=== PATIENT | female | born 1965 | race Caucasian/White ===

== ENCOUNTER → 2018-01-11 16:54 | Outpatient (CLI) | payer BC, SELFPAY ==
[2018-01-11 17:42] LABS: Absolute Lymphocyte Count 1.52 X10^3/ul (0.83-4.51); Absolute Neutrophil Count 3.3 X10^3/uL (2.0-7.7); Basophil# 0.04 X10^3/uL; Basophil% 0.7 % (0-1); Eosinophil# 0.29 X10^3/uL; Eosinophils% 5.2 % (0-5); Hematocrit 40.8 % (37-47); Hemoglobin 13.8 g/dl (12.0-15.0); Lymphocyte # 1.52 X10^3/ul (4.0); Lymphocyte % 27.3 % (19-41); Mean Corp Hgb Conc 33.8 g/gl (32-36); Mean Corpuscular Hgb 30.2 pg (27.0-32.0); Mean Corpuscular Volume 89.3 fL (81-99); Mean Platelet Vol. 10.8 fl (6.2-12.0); Monocyte# 0.42 X10^3/uL; Monocyte% 7.6 % (0-10); Neutrophil # 3.29 X10^3/uL (2.7-7.7); Neutrophil % 59.2 % (47-70); Platelet Count 188 K/mm3 (150-450); RBC Distribution Width CV 12.6 % (11.6-14.6); RBC Distribution Width SD 40.9 fl (35.1-43.9); Red Blood Count 4.57 M/mm3 (4.2-5.4); White Blood Count 5.6 K/mm3 (4.4-11.0)
[2018-01-11 18:16] LABS: POSITIVE COUNT NO; POSITIVE DIFFERENTIAL NO; POSITIVE MORPHOLOGY NO
[2018-01-11 18:21] LABS: ALB/GLOB Ratio 1.1 RATIO (0.9-2.4); AST(SGOT) 18 U/L (15-37); Alanine Aminotransfer ALT/SGPT 36 U/L (13-56); Alkaline Phosphatase 83 U/L (45-117); Anion Gap 9 (5-15); BUN 13 mg/dL (7-18); BUN/Creat Ratio 16.3 RATIO (10-20); Calcium,Total 9.1 mg/dL (8.5-10.1); Chloride 107 mmol/L (98-107); EST Glomerular Filtration Rate 80 mL/min (>60); Est Glom Filt Rate - Afr Amer 97 mL/min (>60); Globulin 3.6 g/dL (2.2-4.2); Glucose 87 mg/dL (74-106); Protein, Total 7.6 g/dL (6.4-8.2); Sodium Level 143 mmol/L (136-145); T4 Free Direct 0.99 ng/dL (0.76-1.46); Thyroid Stim Hormone (TSH) 1.43 uIU/mL (0.358-3.74)
== END ==
PROVIDERS: Family Provider Nurse Practitioner; PCP Nurse Practitioner; Visit Provider Nurse Practitioner
DX: M54.2 Cervicalgia (principal); R53.82 Chronic fatigue, unspecified
CPT/HCPCS: 80053; 84439; 84443; 84481; 85025

== ENCOUNTER → 2018-01-11 18:30 | Outpatient (CLI) | payer BC, SELFPAY ==
--- NOTE | 2018-01-11 18:35 | US_ITS ---
STUDY: THYROID ULTRASOUND REASON FOR EXAM: Female, 52 years old. Right neck pain. Mass. Examining physician feels right side of the neck is larger than left. TECHNIQUE: Ultrasound evaluation of the thyroid was performed with real-time and static jorge-scale imaging. COMPARISON: None. FINDINGS: RIGHT LOBE: The right lobe of the thyroid gland measures 4.4 x 1.7 x 1.3 cm. There is a homogeneous echotexture. There are multiple nodules noted. There is a solid 1.1 x 1.0 x 1.6 cm nodule in the posterior mid thyroid. There is a 0.4 x 0.4 x 0.2 cm complex nodule in the upper lobe. This is 0.7 x 0.7 x 0.4 cm complex cystic and solid nodule in the lower pole. LEFT LOBE: The left lobe of the thyroid gland measures 4.3 x 1.6 x 1.5 cm. There is a homogeneous echotexture. There are 2 nodules there is a 1.1 x 1.1 x 0.6 cm isoechoic nodule with hypoechoic rim in the anterior mid to lower thyroid. There is a 0.5 x 0.3 x 0.3 cm mixed solid and cystic nodule in the mid thyroid. ISTHMUS: The isthmus measures 0.2 cm. There is a 1.7 x 0.8 x 0.2 cm lymph node lateral to the right thyroid. There is a 1.6 x 0.6 x 0 point for centimeter lymph node adjacent to the left thyroid. Also noted is a 1.4 x 0.9 x 0.6 cm lymph node in the right neck which correlates with the area of patient's pain. US/Thyroid IMPRESSION: 1. Symmetric size of the thyroid. 2. Multiple thyroid nodules. TR 3 mildly suspicious. Follow-up in one, 3 and 5 years. 3. Multiple cervical lymph nodes. Electronically Signed: Vincenzo Florez DO at 19:08 EDT Tel [phone], Service support ,
== END ==
PROVIDERS: Family Provider Nurse Practitioner; PCP Nurse Practitioner; Visit Provider Nurse Practitioner
DX: M54.2 Cervicalgia (principal); R53.82 Chronic fatigue, unspecified
CPT/HCPCS: 76536

== ENCOUNTER → 2018-01-12 07:25 | Outpatient (CLI) | payer BC, SELFPAY ==
--- NOTE | 2018-01-12 07:45 | MRI_ITS ---
STUDY: MRI BRAIN WITH AND WITHOUT CONTRAST (ATTENTION INTERNAL AUDITORY CANALS - I.A.C.'s) REASON FOR EXAM: Female, 52 years old. RIGHT pulsatile tinnitus x 3 weeks. TECHNIQUE: Standardized multiplanar fat and water weighted pulse sequences were obtained. 7 ml of Gadavist contrast material was administered intravenously for the contrast portion of the examination. COMPARISON: None. FINDINGS: Normal bilateral temporal bones. Normal bilateral internal auditory canals. There is no demonstrated intracanalicular or cisternal vestibular schwannoma (acoustic neuroma). There is no enhancement of the bilateral VIIth or VIIIth cranial nerves. Normal bilateral cochlea, vestibules and semicircular canals. Normal size of the ventricles and extra-axial spaces for the patient's age. Normal white matter tracts of the supratentorial brain. Normal bilateral basal ganglia. Normal thalami. Normal flow voids within the major intracranial circulation suggesting patency by spin echo criteria. Normal venous enhancement. There is no enhancing intra-axial or extra-axial abnormality. There is no extra-axial fluid accumulation. Normal sella turcica, pituitary gland, infundibular stalk, optic chiasm and hypothalamus. Normal tectal plate and pineal gland. Normal midbrain, harley and medulla. Normal cerebellum. Normal basal cisterns. No demonstrated orbital abnormality, within the constraints of a routine brain study. Normal visualized paranasal sinuses. Normal calvarium and skull base. Normal visualized soft tissue structures. Normal visualized upper cervical spine. MRI/Brain W/WO Contrast IMPRESSION: Unremarkable unenhanced and enhanced MRI of the bilateral internal auditory canals (I.A.C's). Electronically Signed: Toni Morrow MD at 8:02 EDT Tel , Service support ,
--- NOTE | 2018-01-12 07:45 | MRI_ITS ---
STUDY: MRA OF THE HEAD WITHOUT CONTRAST REASON FOR EXAM: Female, 52 years old. RIGHT pulsatile tinnitus x 3 weeks. TECHNIQUE: 3-D dafa-gg-iwodpj (TOF) imaging was performed with MIPs. The study was performed unenhanced. COMPARISON: None. FINDINGS: Normal bilateral petrous carotid arteries. Normal right cavernous carotid artery with a normal supraclinoid bifurcation. Normal left cavernous carotid artery with a normal supraclinoid bifurcation. Normal right A1 segments of the anterior cerebral artery. Normal left A1 segments of the anterior cerebral artery. Normal intact anterior communicating artery (ACOM). Normal bilateral A2 segments of the anterior cerebral arteries. Normal right M1 and M2 segments of the middle cerebral arteries, with a normal M1 bifurcation. Normal left M1 and M2 segments of the middle cerebral arteries, with a normal M1 bifurcation. Normal bilateral vertebral arteries. Normal basilar artery with a normal basilar bifurcation. The visualized bilateral superior cerebellar (SCA) arteries are normal. Normal bilateral P1, P2 and visualized P3 segments of the posterior cerebral arteries. There is no demonstrated aneurysm of the little traverse of Ferrari. There is no major vessel occlusion or hemodynamically significant stenosis. There is no demonstrated abnormality of the visualized brain. MRI/MRA Head ONLY without Contrast IMPRESSION: Normal MRA of the head Electronically Signed: Toni Morrow MD at 8:02 EDT Tel , Service support ,
== END ==
PROVIDERS: Family Provider Nurse Practitioner; PCP Nurse Practitioner; Visit Provider Otolaryngology Otolaryngology/Facial Plastic Surgery
DX: H93.A1 Pulsatile tinnitus, right ear (principal)
CPT/HCPCS: 70544; 70553; A9585

== ENCOUNTER → 2018-02-09 09:10 | Outpatient (CLI) | payer BC, SELFPAY ==
--- NOTE | 2018-02-08 | ASPS_PTH ---
PATIENT: KRISTIAN MACHADO LOC: [facility] U#:[id number] AGE/SX: 59/F ROOM: RE02/09/[address]: Dr. Colt Rascon MD : 1965 BED: DIS: SPEC #: [id number] RECD: 02/09/18 12:59 STATUS: GAY KERRY #: [id number] TEDDY: 02/08/18 00:[address]: Colt Rascon DEPT: CYTOLOGY RECD BY: Michael Cardenas ENTERED: 02/09/18 13:00 SP TYPE: ASPIRATION OTHR DR: Sienna Gipson, DIRECTOR OF CASINO MARKETING-C Tissues: Thyroid gland, NOS Procedures: Pap Stain (control) Special Stain Group II Cytology Other HEADER OPERATION: Ultrasound-guided fine needle aspiration of left thyroid PRE-OP DIAGNOSIS: Multinodular goiter E04.2 TISSUE SUBMITTED: Left thyroid nodule 12 slides DIAGNOSIS CYTOLOGY Fine needle aspiration, left thyroid nodule (smears): Adequate for evaluation. Negative, consistent with benign follicular nodule. AM:telly 02/10/18 CYTOLOGY STUDY Slides are reviewed. CYTOLOGY GROSS Received are 12 smears labeled with the patient's name and designated per the requisition as left thyroid nodule. Submitted for staining. / 02/09/18 TC:5 CPT: 14579
== END ==
PROVIDERS: Family Provider Nurse Practitioner; PCP Nurse Practitioner; Visit Provider Surgery
DX: E04.2 Nontoxic multinodular goiter (principal)
CPT/HCPCS: 88161; 88313

== ENCOUNTER → 2018-04-19 22:00 | Outpatient (CLI) | payer BC, SELFPAY ==
[2018-04-19 22:10] LABS: Absolute Neutrophil Count 3.5 X10^3/uL (2.0-7.7); Basophil# 0.03 X10^3/uL; Basophil% 0.5 % (0-1); Eosinophil# 0.31 X10^3/uL; Eosinophils% 4.7 % (0-5); Hematocrit 40.8 % (37-47); Hemoglobin 14.4 g/dl (12.0-15.0); Lymphocyte % 32.2 % (19-41); Mean Corp Hgb Conc 35.3 g/gl (32-36); Mean Corpuscular Hgb 30.9 pg (27.0-32.0); Mean Corpuscular Volume 87.6 fL (81-99); Mean Platelet Vol. 10.7 fl (6.2-12.0); Monocyte# 0.59 X10^3/uL; Neutrophil # 3.49 X10^3/uL (2.7-7.7); Neutrophil % 53.4 % (47-70); Platelet Count 196 K/mm3 (150-450); RBC Distribution Width CV 12.4 % (11.6-14.6); RBC Distribution Width SD 38.8 fl (35.1-43.9); Red Blood Count 4.66 M/mm3 (4.2-5.4); White Blood Count 6.5 K/mm3 (4.4-11.0)
[2018-04-19 22:11] LABS: POSITIVE COUNT NO; POSITIVE DIFFERENTIAL NO; POSITIVE MORPHOLOGY NO
[2018-04-19 22:37] LABS: ALB/GLOB Ratio 1.2 RATIO (0.9-2.4); AST(SGOT) 18 U/L (15-37); Alanine Aminotransfer ALT/SGPT 44 U/L (13-56); Albumin, Serum 4.2 g/dL (3.2-5.0); Alkaline Phosphatase 89 U/L (45-117); Anion Gap 10 (5-15); BUN 12 mg/dL (7-18); BUN/Creat Ratio 17.8 RATIO (10-20); Calcium,Total 8.6 mg/dL (8.5-10.1); Chloride 106 mmol/L (98-107); Creatinine, Serum 0.67 mg/dL (0.55-1.02); EST Glomerular Filtration Rate 97 mL/min (>60); Est Glom Filt Rate - Afr Amer 117 mL/min (>60); Free T3 2.9 pg/mL (2.18-3.98); Globulin 3.5 g/dL (2.2-4.2); Glucose 78 mg/dL (74-106); Potassium 3.8 mmol/L (3.5-5.1); Protein, Total 7.7 g/dL (6.4-8.2); Sodium Level 142 mmol/L (136-145); T4 Free Direct 1.11 ng/dL (0.76-1.46)
[2018-04-21 08:19] LABS: Thyroid Peroxidase AB 12 IU/mL (0-34)
== END ==
PROVIDERS: Family Provider Nurse Practitioner; PCP Nurse Practitioner; Referring Provider Nurse Practitioner; Visit Provider Nurse Practitioner
DX: R55 Syncope and collapse (principal); R42 Dizziness and giddiness; R00.2 Palpitations
CPT/HCPCS: 80053; 84439; 84443; 84481; 84484; 85025; 86376

== ENCOUNTER → 2018-06-02 22:44 | Outpatient (CLI) | payer BC, SELFPAY ==
[2018-06-02 18:51] VITALS: BMI 27.3
[2018-06-02 22:52] LABS: Absolute Lymphocyte Count 1.66 X10^3/ul (0.83-4.51); Absolute Neutrophil Count 3.7 X10^3/uL (2.0-7.7); Basophil# 0.04 X10^3/uL; Basophil% 0.6 % (0-1); Eosinophil# 0.35 X10^3/uL; Eosinophils% 5.5 % (0-5); Hematocrit 30.2 % (37-47); Hemoglobin 9.6 g/dl (12.0-15.0); Lymphocyte # 1.66 X10^3/ul (4.0); Lymphocyte % 26.3 % (19-41); Mean Corp Hgb Conc 31.8 g/gl (32-36); Mean Corpuscular Hgb 30.2 pg (27.0-32.0); Mean Platelet Vol. 10.7 fl (6.2-12.0); Monocyte# 0.53 X10^3/uL; Monocyte% 8.4 % (0-10); Neutrophil # 3.71 X10^3/uL (2.7-7.7); Neutrophil % 58.9 % (47-70); POSITIVE COUNT NO; POSITIVE DIFFERENTIAL NO; POSITIVE MORPHOLOGY NO; Platelet Count 267 K/mm3 (150-450); RBC Distribution Width CV 14.7 % (11.6-14.6); Red Blood Count 3.18 M/mm3 (4.2-5.4); White Blood Count 6.3 K/mm3 (4.4-11.0)
[2018-06-02 23:28] LABS: ALB/GLOB Ratio 1.2 RATIO (0.9-2.4); AST(SGOT) 42 U/L (15-37); Alanine Aminotransfer ALT/SGPT 81 U/L (13-56); Alkaline Phosphatase 106 U/L (45-117); Anion Gap 7 (5-15); BUN 11 mg/dL (7-18); BUN/Creat Ratio 10.7 RATIO (10-20); Calcium,Total 8.5 mg/dL (8.5-10.1); Chloride 106 mmol/L (98-107); Creatinine, Serum 1.03 mg/dL (0.55-1.02); EST Glomerular Filtration Rate 59 mL/min (>60); Est Glom Filt Rate - Afr Amer 72 mL/min (>60); Globulin 3.4 g/dL (2.2-4.2); Glucose 95 mg/dL (74-106); Protein, Total 7.4 g/dL (6.4-8.2); Sodium Level 140 mmol/L (136-145)
== END ==
PROVIDERS: Family Provider Nurse Practitioner; PCP Nurse Practitioner; Referring Provider Nurse Practitioner; Visit Provider Nurse Practitioner
DX: R53.83 Other fatigue (principal); D64.9 Anemia, unspecified
CPT/HCPCS: 80053; 85025

== ENCOUNTER → 2018-07-13 22:27 | Outpatient (CLI) | payer BC, SELFPAY ==
[2018-07-13 18:47] VITALS: BMI 26.9
[2018-07-13 22:46] LABS: Absolute Lymphocyte Count 2.29 X10^3/ul (0.83-4.51); Basophil# 0.06 X10^3/uL; Basophil% 0.7 % (0-1); Eosinophil# 0.35 X10^3/uL; Eosinophils% 4.2 % (0-5); Hematocrit 43.2 % (37-47); Hemoglobin 14.5 g/dl (12.0-15.0); Lymphocyte # 2.29 X10^3/ul (4.0); Lymphocyte % 27.7 % (19-41); Mean Corp Hgb Conc 33.6 g/gl (32-36); Mean Corpuscular Hgb 30.1 pg (27.0-32.0); Mean Corpuscular Volume 89.8 fL (81-99); Mean Platelet Vol. 10.9 fl (6.2-12.0); Monocyte# 0.57 X10^3/uL; Monocyte% 6.9 % (0-10); Neutrophil # 4.99 X10^3/uL (2.7-7.7); Neutrophil % 60.3 % (47-70); Platelet Count 212 K/mm3 (150-450); RBC Distribution Width CV 12.2 % (11.6-14.6); RBC Distribution Width SD 39.8 fl (35.1-43.9); Red Blood Count 4.81 M/mm3 (4.2-5.4); White Blood Count 8.3 K/mm3 (4.4-11.0)
[2018-07-13 22:47] LABS: POSITIVE COUNT NO; POSITIVE DIFFERENTIAL NO; POSITIVE MORPHOLOGY NO
[2018-07-13 23:02] LABS: ALB/GLOB Ratio 1.1 RATIO (0.9-2.4); AST(SGOT) 44 U/L (15-37); Alanine Aminotransfer ALT/SGPT 72 U/L (13-56); Albumin, Serum 4.1 g/dL (3.2-5.0); Alkaline Phosphatase 102 U/L (45-117); Anion Gap 7 (5-15); BUN 22 mg/dL (7-18); BUN/Creat Ratio 33.5 RATIO (10-20); Chloride 105 mmol/L (98-107); Creatinine, Serum 0.66 mg/dL (0.55-1.02); EST Glomerular Filtration Rate 100 mL/min (>60); Est Glom Filt Rate - Afr Amer 121 mL/min (>60); Globulin 3.7 g/dL (2.2-4.2); Glucose 89 mg/dL (74-106); Potassium 4.2 mmol/L (3.5-5.1); Protein, Total 7.8 g/dL (6.4-8.2); Sodium Level 139 mmol/L (136-145)
== END ==
PROVIDERS: Family Provider Nurse Practitioner; PCP Nurse Practitioner; Referring Provider Nurse Practitioner; Visit Provider Nurse Practitioner
DX: D64.9 Anemia, unspecified (principal)
CPT/HCPCS: 80053; 85025

== ENCOUNTER 2020-03-06 12:39 | Observation (INO) | payer BC, SELFPAY ==
[2019-03-23 21:04] VITALS: BMI 27.3
[2020-03-06] VITALS (15 sets, daily range): BP systolic 112–165; BP diastolic 78–97; PULSE 60–97; RESP 16–18; TEMP 36.1–37.5; O2SAT 92–100; BMI 27.1; BMI 28.3
--- NOTE | 2020-03-06 09:09 | EKG12_ITS ---
Test Reason : PRE-OP Blood Pressure : / mmHG Vent. Rate : 076 BPM Atrial Rate : 076 BPM P-R Int : 138 ms QRS Dur : 078 ms QT Int : 392 ms P-R-T Axes : 067 063 051 degrees QTc Int : 441 ms Normal sinus rhythm Normal ECG No previous ECGs available Confirmed by DICK KUHN, COREY ([id number]), newspaper managing editor KAYE ECKERT ([id number]) on 03/12/2020 9:21:11 AM Referred By: Ousmane Berman Confirmed By:AL JENNINGS MD
--- NOTE | 2020-03-06 09:29 | PCM.HP.BLA ---
Problem List (1) Hypokalemia Status: Acute (2) Cholelithiasis with cholecystitis Status: Acute Qualifiers: History and Physical Date of Admission: 03/06/20 Intake Visit Reasons: gallstones Chief Complaint: Cholelithiasis Carton And Can Supply Supervisor Required: No Accompanied by: Is patient in pain?: Yes Allergies No Known Allergies Allergy (Verified 03/05/20 13:22) Medications dexamethasone 0.5 mg/5 mL oral elixir 0.5 mg PO TID 03/05/20 [History Confirmed 03/05/20] potassium chloride 20 mEq tablet,extended release 20 meq PO DAILY #10 tab 03/05/20 [Rx Confirmed 03/05/20] tamoxifen 20 mg tablet 20 mg PO DAILY 03/05/20 [History Confirmed 03/05/20] PFSH Medical History Neck pain (Acute) Fatigue (Acute) Cholelithiasis (Acute) Fibroids (Acute) Left breast mass (Acute) Multinodular goiter (Acute) benign left follicular thyroid nodule (Acute ~02/09/18) multiple complex cysts in breast (Acute) Surgical History H/O hysterectomy for benign disease (Acute) Previous section (Acute) S/P lumpectomy, left breast (Acute) Family History Other CAD (coronary artery disease) CVA (cerebral vascular accident) Diabetes Heart disease Hypertension Social History (Updated 03/05/20 @ 13:[address] Ousmane Berman MD) Smoking Status: Former smoker how long ago did patient quit smoking: June 2017 second hand exposure: No alcohol intake: current details: once a month wine or mixed drink substance use type: does not use well-balanced diet: daily or most days what type of physical activity do you participate in: walking frequency: 1-2 times per week HPI HPI HPI: KRISTIAN MACHADO, is a 54 F who presents to the office today for urgent consultation regarding suspected biliary colic chronic cholecystitis cholelithiasis. The patient is referred by Sienna Gipson CNP and a written copy of my surgical consult recommendations will return to her. 54-year-old female. Yesterday morning she developed severe right upper quadrant pain with radiation to the back. She was then seen at [facility] yesterday. Findings were abnormal with a white count 11.5 hemoglobin 14.1 hematocrit 38.8 platelet count 205,000 with 81% segs. Liver function tests were normal. Lipase normal. Patient had a potassium level 3. She did not have her potassium replaced. She was not given any oral potassium. She subsequently had a gallbladder ultrasound done today which demonstrates cholelithiasis. There is no wall thickening noted or fluid. The common bile duct is 5.5 mm. The patient received morphine and Toradol in the ER yesterday. She has taken some nonsteroidal Advil today. She denies fever chills or sweats no nausea or vomiting. No recent weight loss. No history of DVT. 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 She takes an oral rinse of dexamethasone and it is controlled. 2 years ago she was in the hospital and through that contact developed C. difficile. She recovered and has not had any symptoms. She has had a previous left breast lumpectomy for benign disease. She has not been a tobacco user. HPI HPI HPI: KRISTIAN MACHADO, is a 54 F who presents to the office today for ROS General General: No weight change, appetite, fatigue, colon cancer, breast cancer or weakness HEENT HEENT: No difficulty swallowing, eye injury, eye surgery, swollen glands or hoarseness Endo Endocrine: No thyroid disease, diabetes mellitus, thyroid cancer, Hair loss, heat intolerance or cold intolerance Skin Skin: No rash or changing moles Breast Breast: No left breast lump, right breast lump, nipple discharge, breast pain, abnormal mammogram, abnormal US or breast enlargement Musc Musculoskeletal: No back problems, arthritis, rheumatoid arthritis, gout or joint pain Cardio Cardiovascular: No murmur, pacemaker, heart disease, atrial fibrillation, high blood pressure, heart attack, heart stent, palpitations, shortness of breat with exertion or chest pain Psych Psychiatric: No depression, anxiety or hearing voices Resp Respiratory: No shortness of breath, No sleep apnea, No cough, No COPD, No asthma, No emphysema, No wheezing Gastro Gastrointestinal: Yes abdominal pain, No nausea or vomiting, No diarrhea, No constipation, No blood in stool, No acid reflux, No hemorrhoids, No ulcers, Yes gallbladder problem, No black,tarry stools Moy Hematologic: No blood thinners, No blood disorders, No bleeding, No anemia, No blood clots Neuro Neurologic: No system reviewed and no additional complaints, except as docu, No as per HPI, No abnormal walking, No abnormal hearing, No abnormal movements, No abnormal speech, No behavioral changes, No burning sensations, No confusion, No seizure-like activity, No unsteadiness, No dizziness, No localized weakness, No frequent falls, No headache(s), No lack of coordination, No loss of vision, No memory loss, No numbness, No other visual disturbances, No radiating pain, No restless legs, No sensory deficit, No fainting, No tingling, No tremor(s), No weakness, No other Exam Const General: cooperative, other (Uncomfortable) Nutritional Appearance: average body habitus Orientation: alert, awake [facility] Head: normal to inspection Eyes General: appearance normal, both eyes and all related structures Chest Breast Palpation: No nipple discharge Resp Effort & Inspection: normal respiratory effort Auscultation: clear to auscultation bilaterally Cardio Palpation: normal PMI Rate: regular rate Heart Sounds: no murmurs GI Palpation: soft Other: Gallbladder enlargement noted. Mild tenderness, otherwise soft, normal bowel sounds, mild guarding, no rebound Musc Cervical Spine: normal cervical lordosis Skin General: no rashes or lesions noted Neuro General: alert, awake Extrem General: no calf tenderness Psych Affect: normal affect Assessment & Plan Problems 1. Calculus of gallbladder with acute cholecystitis without obstruction K80.00 2. Hypokalemia E87.6 Plan I recommended the patient replacement of her potassium prior to attempting surgery. I have prescribed oral potassium 20 mEq now and at 6 PM and at 10 PM. She will be fasting after midnight. We will add her onto the surgery schedule tomorrow with a preoperative stat potassium level. I described to her a laparoscopic cholecystectomy with selective cholangiography. I discussed the technique, benefit, risk and alternatives. She has had an opportunity to ask and have questions answered. Because of her C. difficile colitis I will not initiate oral antibiotic therapy at this setting. She will get 1 dose intravenously preop procedure. Clinically I believe that she has an enlarged gallbladder. I believe however that she can be managed conservatively until her potassium can be replaced. I appreciate the opportunity of assisting with her surgical care Copy: Sienna Gipson, ALTA Berman M.D., F.A.C.S. Medications New: potassium chloride ER Take one tablet now, repeat at 6pm and bedtime 03/05/2020. Beginning 03/06/2020 take one tablet daily 20 mEq PO DAILY 10 tabs 0RF Coding Level of Care Code 30107 Diagnoses Calculus of gallbladder with acute cholecystitis without obstruction K80.00 ??Cholelithiasis location: gallbladder ??Cholecystitis acuity: acute ??Biliary obstruction: without biliary obstruction Hypokalemia E87.6 I have re-examined the patient. There are no clinical changes since date of exam. Procedure Criteria Procedure Type: Elective COVID Risk Discussion: The surgeon/proceduralist and patient have discussed in detail the risk of exposure to and/or potential harm posed by the COVID-19 virus with having a surgery/procedure at this time versus the risk of delaying the surgery/procedure. It is not possible to know either the risk of delaying the surgery or procedure or chance of getting an infection with perfect accuracy, but a joint decision was made between the patient and the surgeon/proceduralist to proceed at this time with the scheduled surgery/procedure as indicated on the consent form.
--- NOTE | 2020-03-06 09:34 | DCINST_ITS ---
Discharge Diet: Light diet - advance as tolerated - if you have questions about your diet instructions, please talk to you doctor. Discharge Activity: May Not Drive - for 1 week or while taking narcotic pain medicine. May shower in (days): 1 Lifting Restrictions: 10 pounds Call your doctor if your incision/area has: Continuous Slow Oozing, Sudden Increased Bleeding, Increased Pain/ Swelling, Increased Redness, Foul Smelling Discharge Call your doctor if you observe: Fever of 101 or Higher Suture Line Care: Avoid Pulling/Pushing, Avoid Pinching/Bending Additional Dressing/Incision Instructions:: Change or remove dressing in 4 days. Leave steri-strips in place for 1 week. Allergies/Adverse Reactions: Allergies No Known Allergies Allergy (Verified 03/05/20 14:21) Medications to take at Discharge dexamethasone 0.5 mg/5 mL oral elixir 0.5 mg PO TID 03/05/20 potassium chloride 20 mEq tablet,extended release 20 meq PO DAILY #10 tab 03/05/20 tamoxifen 20 mg tablet 20 mg PO DAILY 03/05/20 Orders to be completed after discharge: Potassium Time Frame: 03/06/20, [facility], Location: Laboratory Primary Care Physician: Sienna Gipson WATER TREATMENT OPERATOR, WATER TREATMENT OPERATOR-C [Primary Care Provider] - Test Results: Test results from this visit will be discussed in further detail at your follow- up appointment, if applicable. Please Follow Up With: Ousmane Berman MD - [phone] When: Call to make an appointment to be seen in about 10 days. Please Follow Up With: Call for appt: May be phone or virtual or on site
[2020-03-06] MEDS: Lactated Ringers 1,000 ML 100 ML IV ×3 (09:40→23:46)
[2020-03-06] MEDS: Cefazolin 2 GM in 0.9% Normal Saline 100 ML IV (11:03)
--- NOTE | 2020-03-06 11:05 | GALL_PTH ---
PATIENT: KRISTIAN MACHADO LOC: [facility] U#:[id number] AGE/SX: 54/F [place] [facility] [place]: Dr. Ousmane Berman MD : 1965 BED: 1 DIS: 03/07/2020 SPEC #: [id number] RECD: 03/06/20 13:28 STATUS: GAY KERRY #: [id number] TEDDY: 03/06/20 11:[address]: Ousmane Berman DEPT: SURGICAL PATHOLOGY RECD BY: Doris Agee ENTERED: 03/06/20 13:41 SP TYPE: EMERY STEPHENS DR: Sienna Gipson, DRAFTER TOPOGRAPHICAL-C Tissues: A - Gallbladder, NOS B - HERNIA Procedures: Surgery Specimen Level II Surgery Specimen Level III HEADER OPERATION: Laparoscopic cholecystectomy with IOC and umbilical hernia PRE-OP DIAGNOSIS: Cholelithiasis with cholecystitis TISSUE SUBMITTED: A - Gallbladder, B - Hernia sac and contents MICROSCOPIC DIAGNOSIS A. Gallbladder, cholecystectomy: Acute and chronic hemorrhagic and ulcerated cholecystitis and cholelithiasis. B. Hernia sac and contents: A piece of mature adipose tissue, consistent with hernia sac and contents. SALVADOR:telly 03/08/20 MICROSCOPIC DESCRIPTION Slides are reviewed. GROSS DESCRIPTION A - Received is one container labeled with the patient's name and designated gallbladder. The specimen consists of a gallbladder measuring 11 cm in length and up to 4 cm in diameter. The external surface is pink-degroot, smooth and glistening for the most part. Focally it is granular, hemorrhagic and contains cautery artifact. The gallbladder contains hemorrhagic bile and multiple greenish-brown multifaceted stones measuring in aggregate 7 x 7 x 3 cm and 1 to 2.5 cm in greatest dimension. The mucosa is congested and hemorrhagic. The gallbladder wall measures up to 0.3 cm in thickness. Mechanical Engineering Advisor sections from the gallbladder and the cystic duct are submitted in one cassette. B - Received in fixative is one container labeled with the patient's name and designated hernia sac and contents. The specimen consists of a piece of yellow adipose tissue measuring 2.5 x 1.5 x 0.5 cm. The specimen is bisected and submitted entirely in one cassette. / SALVADOR:telly 03/07/20 TC:2 CPT: 40309, 06636
--- NOTE | 2020-03-06 11:22 | RAD_ITS ---
STUDY: INTRAOPERATIVE CHOLANGIOGRAM. REASON FOR EXAM: Female, 54 years old. LAP SPIKE . Cholecystitis. -- 1 CINE RUN, 15.9 FLUORO SEC, 11.72mGy FLUOROSCOPY TIME (if supplied): ( 15.9 seconds ) minutes/seconds TECHNIQUE: An intraoperative cholangiogram was performed by the surgeon. A cine loop of 103 clips was submitted. COMPARISON: None. FINDINGS: The visualized intrahepatic biliary ducts are unremarkable. The common bile duct is not dilated. No intraluminal filling defect is seen. There is free flow of contrast into the duodenum. RAD/Cholangiogram/ O R,Initial IMPRESSION: Unremarkable intraoperative cholangiogram. Electronically Signed: Francisco Smith, at 13:09 EDT , Service support ,
[2020-03-06] MEDS: Bupivacaine Mpf 0.5% 30 ML VIAL (12:34)
--- NOTE | 2020-03-06 12:43 | OP.PCM_ITS ---
Problem List (1) Hypokalemia Status: Acute (2) Cholelithiasis with cholecystitis Status: Acute Qualifiers: Report of Operation Date of Procedure: 03/06/20 Pre-Operative Diagnosis: Acute cholecystitis cholelithiasis, umbilical hernia Post-Operative Diagnosis: Acute cholecystitis, cholelithiasis, umbilical hernia Surgery/Procedure Performed:: Laparoscopic cholecystectomy with cholangiography. Umbilical herniorrhaphy Description of Surgical Findings:: Timeout and informed consent was obtained. 54-year-old female was taken to the operating placement table underwent general endotracheal intubation anesthesia. The abdomen sterilely prepped and draped. 0.5% Marcaine was used as a local anesthetic. Throughout the procedure total 30 cc was used. Ancef 2 g were given intravenously. A vertical infraumbilical incision was created and a umbilical hernia encountered with preperitoneal fat that preperitoneal tissue was dissected free hemostasis was obtained electrocautery. Holding sutures of 0 Vicryl placed. Varies needle inserted. The abdomen was insufflated CO2 to a pressure of 10 mmHg pressure. 10 mm trocar inserted. 10 mm scope inserted. No concern trocar injuries. Under laparoscopic visualization 5 mm trochars were placed in the epigastric mid abdomen right upper quadrant. The gallbladder was noted be grossly tightly distended. There were adhesions of omentum. Adhesions of the omentum were bluntly and sharply dissected free. Hemostasis was obtained with hemo-lock clips and electrocautery. The gallbladder was trocar aspirated. It had white bile consistent with hydrops. The gallbladder was distracted further blunt dissection was required at the infundibular area. Tedious dissection was required with aqua dissection and blunt dissection until finally the cystic artery and cystic duct clearly identified in the critical view achieved. The cystic artery was clipped twice proximally once distally prior to transecting it. Hemo-lock clip was placed on the infundibular area the gallbladder incision made in the duct and through a 14-gauge Angiocath a cholangiogram catheter was inserted. Fluoroscopically control cholangiograms were obtained demonstrating normal ductal anatomy. A additional hemo-lock clip was placed on the cystic duct stump as the catheter was removed. The ga llbladder was then tediously dissected free from the liver bed. The gallbladder was partially intrahepatic and dissection was tedious and bloody. Dissection was achieved. Hemostasis was achieved with electrocautery. There were multiple stones within the gallbladder. There was felt to be no stone spillage. The gallbladder was immediately placed within a retrieval bag. The right upper quadrant was copiously irrigated and aspirated free. Several hemo-lock clips were placed on the edge of the liver to help obtain hemostasis. Fibular x2 pieces was placed in the liver bed to further obtain hemostasis. Hemostasis was felt to been obtained. The right upper quadrant was aspirated and irrigated free of excess fluid. The abdomen was allowed to deflate of the CO2 through the viral valve. The gallbladder was exited the umbilicus enlargement of the fascial incision was required. Multiple stones and a large caliber bladder encountered. Trochars were removed. The umbilical hernia was closed with several mrrdzv-hy-ponri sutures of 0 Nurolon. Skin edges approximated interrupted 4 Monocryl subdermal stitches. Steri-Strips Telfa OpSite dressings applied. Sponge and instrument and needle counts were reported to the surgeon to be correct. Blood loss approximately 30 cc. Specimens gallbladder and hernia contents. Drains none. Ousmane Berman M.D., F.A.C.S. Type of Anesthesia:: General Anesthesiologist: Yeison Waterman
[2020-03-06] MEDS: Ondansetron 4 MG/2 ML Vial IV (17:58)
--- NOTE | 2020-03-06 20:00 | NURSING ---
Encouraged pt to get out of bed and walk. Pt walked a full lap in the rodriguez. tolerated well.
[2020-03-06] MEDS: Acetaminophen 325 MG Tablet 650 MG PO (22:38)
[2020-03-06] MEDS: 0.9% Saline Lock 10 ML Syringe IV (23:29)
[2020-03-06 23:30] LABS: Bedside Glucose 123 mg/dL (70-110)
[2020-03-06] MEDS: Morphine 2 MG/ML Syringe IV (23:30)
[2020-03-07 02:29] VITALS: BP 141/89; PULSE 82; RESP 16; TEMP 37; O2SAT 96
--- NOTE | 2020-03-07 03:06 | NURSING ---
before midnight -pt had a frozen ice. Soon after she had 200 ml emesis. Pt stated she felt better after vomiting. States that previously she has problems with vomiting after anesthesia. 0305 pt just walked 3 laps in the rodriguez. tolerated well. Pt has c/o lower back pain from the bed. Assisted pt to the chair. Pt states she is more comfortable in the chair. SCD's applied. Pt is rating her pain as a 2-3 in her abdomen and lower back. Encouraged IS use
[2020-03-07 05:44] LABS: Absolute Lymphocyte Count 2.16 X10^3/uL (0.83-4.51); Absolute Neutrophil Count 9.6 X10^3/uL (2.0-7.7); Basophil# 0.04 X10^3/uL; Basophil% 0.3 % (0-1); Eosinophil# 0.03 X10^3/uL; Eosinophils% 0.2 % (0-5); Hematocrit 38.4 % (37-47); Hemoglobin 12.3 g/dL (12.0-15.0); Lymphocyte # 2.16 X10^3/ul (4.0); Lymphocyte % 16.8 % (19-41); Mean Corpuscular Hgb 30.1 pg (27.0-32.0); Mean Corpuscular Volume 94.1 fL (81-99); Mean Platelet Vol. 9.7 fl (6.2-12.0); Monocyte% 7.8 % (0-10); NRBC Flagged by Analyzer 0 % (0-5); Neutrophil # 9.58 X10^3/uL (2.7-7.7); Neutrophil % 74.6 % (47-70); Platelet Count 194 K/mm3 (150-450); RBC Distribution Width CV 12.2 % (11.6-14.6); Red Blood Count 4.08 M/mm3 (4.2-5.4); White Blood Count 12.9 K/mm3 (4.4-11.0)
[2020-03-07 05:57] LABS: Anion Gap 5 (5-15); BUN 6 mg/dL (7-18); BUN/Creat Ratio 10.7 RATIO (10-20); Calcium,Total 7.9 mg/dL (8.5-10.1); Chloride 107 mmol/L (98-107); Creatinine, Serum 0.56 mg/dL (0.55-1.02); EST Glomerular Filtration Rate 119 mL/min (>60); Est Glom Filt Rate - Afr Amer 144 mL/min (>60); Estimated Creatinine Clearance 100.94 ml/min; Glucose 116 mg/dL (74-106); Potassium 3.8 mmol/L (3.5-5.1); Sodium Level 138 mmol/L (136-145)
--- NOTE | 2020-03-07 06:02 | PN.SURG_ITS ---
Subjective: Patient is more comfortable currently. She had some nausea overnight but she thinks that it was related to the IV pain medicine. She has not had any flatus. She has been able to ambulate and she feels better with that. She has been able to urinate. - Physical Exam Vitals/I&O's: Vital Signs Temp Pulse Resp BP Pulse Ox 98.6 F 82 16 141/89 H 96 03/07/20 02:29 03/07/20 02:29 03/07/20 02:29 03/07/20 02:29 03/07/20 02:29 Oxygen Flow Rate (L/min) 2 Oxygen Delivery Method Room Air Weight: 170 lb 6.677 oz Body Mass Index (BMI) 28.3 Intake and Output for Last 24 Hours 03/05/20 03/06/20 03/07/20 23:59 23:59 23:59 Intake Total 2120.00 / 2120.00 Output Total 1750 / 1750 Balance 370.00 / 370.00 Lungs: Clear to auscultation Abdomen: Soft, Non Tender, Hypoactive Bowel Sounds Laboratory Results 03/06/20 09:20: Potassium 4.0 03/06/20 23:22: POC Glucose 123 H 03/07/20 05:36: WBC 12.9 H, RBC 4.08 L, Hgb 12.3, Hct 38.4, MCV 94.1, MCH 30.1, MCHC 32.0, RDW Std Deviation 42.0, RDW Coeff of Ness 12.2, Plt Count 194, MPV 9.7, Immature Gran % (Auto) 0.300, Neut % (Auto) 74.6 H, Lymph % (Auto) 16.8 L, [place] % (Auto) 7.8, Eos % (Auto) 0.2, Baso % (Auto) 0.3, Absolute Neuts (auto) 9.6 H, Absolute Lymphs (auto) 2.16, Nucleated RBC % 0 03/07/20 05:36: Sodium 138, Potassium 3.8, Chloride 107, Carbon Dioxide 26.0, Anion Gap 5, BUN 6 L, Creatinine 0.56, Estim Creat Clear Calc 100.94, Est GFR (MDRD) Af Amer 144, Est GFR (MDRD) Non-Af 119, BUN/Creatinine Ratio 10.7, Glucose 116 H, Calcium 7.9 L Current Medications Acetaminophen (Tylenol) 650 mg PO Q6H PRN PRN PRN Reason: Pain Score 1-10/10 Last Admin: 03/06/20 22:38 Dose: 650 mg Documented by: Hydrocodone Bitart/Acetaminophen ([place] 5mg-325mg) 1 - 2 tablet PO Q4H PRN PRN PRN Reason: Pain Score 1-10/10 Lactated Ringer's () 1,000 mls @ 100 mls/hr IV .Q10H [facility] [place] Last Admin: 03/06/20 23:46 Dose: 100 mls/hr Documented by: Morphine Sulfate () 2 - 4 mg IV Q1H PRN PRN PRN Reason: Pain Score 1-10/10 Last Admin: 03/06/20 23:30 Dose: 2 mg Documented by: Morphine Sulfate () 2 - 4 mg IV Q1H PRN PRN PRN Reason: Pain Score 1-10/10 Ondansetron HCl (Zofran) 4 mg IV Q8H PRN PRN PRN Reason: NAUSEA Last Admin: 03/06/20 17:58 Dose: 4 mg Documented by: Potassium Chloride (K-Dur) 20 meq PO DAILYCM [facility] [place] Last Admin: 03/06/20 20:08 Dose: 20 meq Documented by: Sodium Chloride () 10 - 40 ml IV UD PRN PRN Reason: SALINE FLUSH Last Admin: 03/06/20 23:29 Dose: 10 ml Documented by: Medical Necessity - Tobacco Use Smoking Status: Former smoker Tobacco Use: Non-smoker Assessment/Plan All Active Problems (Last Reviewed 03/05/20 @ 13:20 by Kathi Kan) Hypokalemia (Acute) Cholelithiasis with cholecystitis (Acute) Abnormal mammogram of left breast (Acute) Left breast mass (Acute) Post-nasal drip (Acute) Maxillary sinusitis (Acute) C. difficile colitis (Acute) Lower abdominal pain (Acute) Anemia (Acute) Palpitations (Acute) Syncopal episodes (Acute) Dizziness (Acute) Neck pain (Acute) Fatigue (Acute) Clinically she appears stable. We will rate laboratories. I will advance her to a full liquid diet. I anticipate discharge later this morning.
--- NOTE | 2020-03-07 06:58 | NURSING ---
pt walked a full lap in the [place]driguez -tolerated well.
[2020-03-07 07:40] VITALS: BP 160/98; PULSE 74; RESP 16; TEMP 36.9; O2SAT 99
[2020-03-07] MEDS: Acetaminophen 325 MG Tablet 650 MG PO (07:53)
[2020-03-07 13:25] VITALS: BP 144/80; PULSE 85; RESP 16; TEMP 36.9; O2SAT 96
== END 2020-03-07 14:00 | disposition home or self-care (01) ==
LOC: MS3 14:11 → SDC 14:21 → MS3 14:22
PROVIDERS: Admitting Provider Surgery; PCP Nurse Practitioner; Referring Provider Surgery; Visit Provider Surgery
PROC: (CPT 47610; principal; 2020-03-06 10:45)
DX: K80.12 Calculus of gallbladder with acute and chronic cholecystitis without obstruction (principal); K42.9 Umbilical hernia without obstruction or gangrene; E87.6 Hypokalemia; Z79.899 Other long term (current) drug therapy; Z87.891 Personal history of nicotine dependence; D64.9 Anemia, unspecified
CPT/HCPCS: 00790; 47563; 49585; 36415; 74300; 76000; 80048; 82962; 84132; 85025; 88302; 88304; 93005; 96361; 96374; 96375; 99218; 99251; J7120; A4216; G0378; G0379; G0463; J2405

== ENCOUNTER → 2020-12-19 22:31 | Outpatient (CLI) | payer BC, SELFPAY ==
[2020-12-19 19:30] VITALS: BMI 27.3
[2020-12-19 22:42] LABS: Absolute Neutrophil Count 4.4 X10^3/uL (2.0-7.7); Basophil# 0.06 X10^3/uL; Basophil% 0.8 % (0-1); Eosinophil# 0.23 X10^3/uL; Hematocrit 39.7 % (37-47); Hemoglobin 13.6 g/dL (12.0-15.0); Lymphocyte % 31.6 % (19-41); Mean Corp Hgb Conc 34.3 g/dL (32-36); Mean Corpuscular Hgb 30.5 pg (27.0-32.0); Mean Platelet Vol. 10.4 fl (6.2-12.0); Monocyte# 0.48 X10^3/uL; Monocyte% 6.3 % (0-10); NRBC Flagged by Analyzer 0 % (0-5); Neutrophil # 4.41 X10^3/uL (2.7-7.7); Neutrophil % 58.2 % (47-70); Platelet Count 238 K/mm3 (150-450); RBC Distribution Width CV 12.1 % (11.6-14.6); RBC Distribution Width SD 39.6 fl (35.1-43.9); Red Blood Count 4.46 M/mm3 (4.2-5.4); White Blood Count 7.6 K/mm3 (4.4-11.0)
[2020-12-19 22:58] LABS: Insulin 17.8 mU/L (2.6-37.6)
[2020-12-19 23:01] LABS: AST(SGOT) 15 U/L (15-37); Alanine Aminotransfer ALT/SGPT 31 U/L (13-56); Albumin, Serum 3.7 g/dL (3.2-5.0); Alkaline Phosphatase 56 U/L (45-117); Anion Gap 9 (5-15); BUN 12 mg/dL (7-18); BUN/Creat Ratio 15.3 RATIO (10-20); Calcium,Total 8.6 mg/dL (8.5-10.1); Chloride 107 mmol/L (98-107); Cholesterol 196 mg/dL (200); Creatinine, Serum 0.78 mg/dL (0.55-1.02); EST Glomerular Filtration Rate 80 mL/min (>60); Est Glom Filt Rate - Afr Amer 97 mL/min (>60); Globulin 3.7 g/dL (2.2-4.2); Glucose 118 mg/dL (74-106); High Density Lipoprotein 41 mg/dL; Potassium 3.7 mmol/L (3.5-5.1); Protein, Total 7.4 g/dL (6.4-8.2); Sodium Level 139 mmol/L (136-145); Triglycerides 230 mg/dL; Very Low Density Lipoprotein 46 mg/dL (5-40)
[2020-12-19 23:10] LABS: PTHIN 46.8 pg/mL (18.4-80.1)
[2020-12-24 17:02] LABS: Vitamin D 1,25-Dihydroxy 69.2 pg/mL (19.9-79.3)
== END ==
PROVIDERS: PCP Nurse Practitioner; Referring Provider Nurse Practitioner; Visit Provider Nurse Practitioner
DX: D64.9 Anemia, unspecified (principal); E87.6 Hypokalemia; R00.2 Palpitations; E55.9 Vitamin D deficiency, unspecified; R63.5 Abnormal weight gain
CPT/HCPCS: 80053; 80061; 82652; 83525; 83970; 84443; 85025

== ENCOUNTER 2023-04-03 10:39 | Emergency (ER) | payer OTHER, SELFPAY ==
[2023-04-03 10:40] VITALS: BP 155/100; PULSE 114; RESP 20; TEMP 36.6; O2SAT 97; BMI 26.7
--- NOTE | 2023-04-03 11:06 | EDS_ITS ---
HPI History of Present Illness Chief Complaint: Dizziness Informant: patient, spouse/S.O. and EMS Narrative Narrative: 57-year-old female presenting to the emergency room with lightheadedness. Patient states that a couple weeks ago she had a root canal in the right upper side. She recovered from that and this previous Wednesday (3 days ago) she had vomiting and diarrhea which was short-lived and resolved. She was feeling well until this morning. When she woke she noted discomfort on the left upper teeth very similar to when she had the infection on the right upper teeth. She states that her went to take the car to the shop and called her to come pick him up. She states that she needed to have a bowel movement was on the commode when she suddenly began to feel lightheaded. No shortness of breath nausea or sweating. She states that she was able to drive but began to feel that way still. She has a history of breast cancer current on raloxifene. She notes chronic swelling of the right lower extremity due to ankle fracture. She is not a diabetic. No known lung conditions. [facility] Medical History benign left follicular thyroid nodule (~02/09/18) Cholelithiasis Cholelithiasis with cholecystitis Fatigue Fibroids Hypokalemia Left breast mass Multinodular goiter multiple complex cysts in breast Neck pain Osteopenia Pemphigus Trimalleolar fracture of ankle, open Home Medications dexamethasone sodium phosphate 4 mg/mL injection solution 6 mg PO DAILY 05/26/22 [History Last Taken Unknown] raloxifene 60 mg tablet 60 mg PO DAILY 08/05/22 [History Last Taken Unknown] potassium chloride 20 mEq tablet,extended release 40 meq (2 x 20 mEq) PO DAILY # 10 tabs 04/03/23 [Rx Last Taken Unknown] Allergy/AdvReac Type Severity Reaction Status Date / Time No Known Allergies Allergy Verified 04/03/23 10:39 Family History Other CAD (coronary artery disease) CVA (cerebral vascular accident) Diabetes Heart disease Hypertension Surgical History H/O hysterectomy for benign disease History of arthroscopy of shoulder Previous section S/P lumpectomy, left breast Status post ORIF of fracture of ankle Trimalleolar fracture of ankle, closed Social History Smoking Status: Former smoker how long ago did patient quit smoking: June 2017 second hand exposure: No alcohol intake: current details: once a month wine or mixed drink substance use type: does not use well-balanced diet: daily or most days what type of physical activity do you participate in: walking frequency: 1-2 times per week ROS ROS ED ROS Narrative Lightheadedness Constitutional Constitutional ED: Denies chills or weight loss Eyes Eyes: Denies change in vision or diplopia ENT ENT ED: Reports other Details: Tooth pain ; Denies ear pain, rhinorrhea or sore throat Cardiovascular Cardiovascular: Denies chest pain, orthopnea, palpitations or racing heartbeat Respiratory/Chest Respiratory/Chest: Denies cough, dyspnea or orthopnea Gastrointestinal Gastrointestinal: Reports diarrhea, nausea and vomiting; Denies abdominal pain Genitourinary Genitourinary ED: Denies dysuria, hematuria or urinary frequency Musculoskeletal Musculoskeletal: Denies arthralgias or myalgias Integumentary Denies abscess or rash Neurologic Neurologic: Denies headache(s) or weakness Psychiatric Psychiatric: Denies anxiety, depression, suicidal ideation or suicidal thoughts Endocrine Endocrinology: Denies polydipsia, polyphagia or polyuria Allergic/Immunologic Allergic/Immunologic ED: Denies mouth swelling, tongue swelling or urticaria EXAM Physical Exam Const Vital Signs: 04/03/23 10:40 04/03/23 11:14 04/03/23 11:39 Temperature 97.8 F Temperature Source Temporal Pulse Rate 114 H 101 H Respiratory Rate 20 H 13 Respiratory Pattern Normal Blood Pressure 155/100 H 139/89 H Blood Pressure Mean 118 105 Pulse Ox 97 97 Oxygen Delivery Method Room Air Room Air Positive well nourished and well developed General Appearance ED: well developed HEENT Reports normocephalic, head/scalp atraumatic and moist mucous membranes Eyes PERRL and EOMs intact bilaterally Neck no lymphadenopathy, supple and no JVD Resp normal respiratory effort and clear to auscultation bilaterally Cardio regular rate, regular rhythm and no murmurs Rate: tachycardic GI normal to inspection, nondistended, normoactive bowel sounds and non-tender Palpation: soft Back/Spine no CVA tenderness and normal ROM Extremity normal to inspection General Extremety ED: Yes edema General Extremity: edema right lower extremity mild Neuro oriented x3 and CN's II-XII intact bilaterally Sensorium / Orientation: alert Motor Exam: strength 5/5 throughout Psych mental status grossly normal Mood & Affect: Negative for depressed or tearful Skin no rashes or lesions noted and no wounds MDM MDM MDM Narrative Medical decision making narrative: Patient is EKG appears normal. White count hemoglobin normal. Platelet count 164. D-dimer is normal. Troponin is 9. Glucose of 133. Potassium returned significantly low at 2.7 and her magnesium is 2.0. Patient received oral and IV potassium. At this point I think the patient can have her potassium replaced at home. Cardiac evaluation seems to be stable at this point. Patient will follow-up with her primary care doctor next week for repeat of potassium level History & Record Review Discussion w/independent historian: Patient and Significant other Lab Data Attestation: I reviewed the patient's lab results. Labs: Laboratory Results - last 24 hr 04/03/23 11:02 WBC 5.6 RBC 4.55 Hgb 14.1 Hct 40.5 MCV 89.0 MCH 31.0 MCHC 34.8 RDW Std Deviation 39.8 RDW Coeff of Ness 12.2 Plt Count 164 MPV 9.8 Immature Gran % (Auto) 0.500 Neut % (Auto) 61.3 Lymph % (Auto) 24.0 [place] % (Auto) 9.4 Eos % (Auto) 4.1 Baso % (Auto) 0.7 Absolute Neuts (auto) 3.5 Absolute Lymphs (auto) 1.35 Nucleated RBC % 0 D-Dimer Quant (PE/DVT) 0.37 Sodium 138 Potassium 2.7 L* Chloride 109 H Carbon Dioxide 23.0 Anion Gap 6 BUN 12 Creatinine 0.70 Estim Creat Clear Calc 77.87 Est GFR (MDRD) Af Amer 110 Est GFR (MDRD) Non-Af 91 BUN/Creatinine Ratio 17.1 Glucose 133 H Calcium 8.7 Magnesium 2.0 Troponin I High Sens 9 Radiography Diagnostic Testing: Clinical Impression(s) from Imaging Studies Chest X-Ray 04/03/23 11:30 IMPRESSION: Normal x-ray examination of the chest. Electronically Signed: Zechariah Waller MD at 11:58 EDT , EKG Initial EKG: Attestation: I personally reviewed and interpreted this EKG as follows: Comments: Sinus tachycardic with a ventricular rate of 116 bpm. No definitive features of ACS noted Discharge Plan Triage Chief Complaint: Dizziness ED Provider: Colt Denis Dx/Rx/DC Orders Clinical Impression: Episodic lightheadedness, Acute hypokalemia Instructions: ED Hypokalemia Prescriptions: New potassium chloride 20 mEq tablet extended release 40 meq PO DAILY Qty: 10 0RF No Action dexamethasone sodium phosphate 4 mg/mL solution 6 mg PO DAILY raloxifene 60 mg tablet 60 mg PO DAILY Primary Care Provider: Sienna Gipson NP Referrals: Sienna Gipson NP, [facility] [Primary Care Provider] - 5-7 Days Disposition Disposition: Home, Self Care
--- NOTE | 2023-04-03 11:30 | RAD_ITS ---
STUDY: X-RAY CHEST REASON FOR EXAM: Female, 57 years old. lightheadedness TECHNIQUE: Single AP portable view of the chest. COMPARISON: None. FINDINGS: EKG leads overlie the chest The lungs are clear and expanded. There is no demonstrated pleural abnormality. Normal size heart. Normal mediastinum and shaw. Normal visualized pulmonary arteries. Normal visualized aortic arch and descending thoracic aorta. There are diffuse degenerative changes of the visualized thoracic spine. Normal visualized ribs, clavicles, and shoulders. There is no demonstrated abnormality of the visualized soft tissue structures of the upper abdomen. RAD/Chest 1 View (Portable) IMPRESSION: Normal x-ray examination of the chest. Electronically Signed: Zechariah Waller MD at 11:58 EDT ,
[2023-04-03 11:31] LABS: Absolute Lymphocyte Count 1.35 X10^3/uL (0.83-4.51); Absolute Neutrophil Count 3.5 X10^3/uL (2.0-7.7); Basophil# 0.04 X10^3/uL; Basophil% 0.7 % (0-1); Eosinophil# 0.23 X10^3/uL; Eosinophils% 4.1 % (0-5); Hematocrit 40.5 % (37-47); Hemoglobin 14.1 g/dL (12.0-15.0); Lymphocyte # 1.35 X10^3/ul (0.83-4.51); Mean Corp Hgb Conc 34.8 g/dL (32-36); Mean Platelet Vol. 9.8 fl (6.2-12.0); Monocyte# 0.53 X10^3/uL; Monocyte% 9.4 % (0-10); NRBC Flagged by Analyzer 0 % (0-5); Neutrophil # 3.45 X10^3/uL (2.7-7.7); Neutrophil % 61.3 % (47-70); Platelet Count 164 K/mm3 (150-450); RBC Distribution Width CV 12.2 % (11.6-14.6); RBC Distribution Width SD 39.8 fl (35.1-43.9); Red Blood Count 4.55 M/mm3 (4.2-5.4); White Blood Count 5.6 K/mm3 (4.4-11.0)
[2023-04-03 11:39] VITALS: BP 139/89; PULSE 101; RESP 13; O2SAT 97
[2023-04-03 11:52] LABS: Anion Gap 6 (5-15); BUN 12 mg/dL (7-18); BUN/Creat Ratio 17.1 RATIO (10-20); Calcium,Total 8.7 mg/dL (8.5-10.1); Chloride 109 mmol/L (98-107); D-Dimer Quantitative (DVT/PE) 0.37 FEU/ug/m (0.27-0.49); EST Glomerular Filtration Rate 91 mL/min (>60); Est Glom Filt Rate - Afr Amer 110 mL/min (>60); Estimated Creatinine Clearance 77.87 ml/min; Glucose 133 mg/dL (74-106); Potassium 2.7 mmol/L (3.5-5.1); Sodium Level 138 mmol/L (136-145); Troponin-I HS 9 pg/mL (3.0-54.0)
[2023-04-03 12:00] VITALS: BP 139/89; PULSE 101; RESP 13; O2SAT 100
[2023-04-03] MEDS: Potassium Chloride Oral Soln 20 MEQ/15 ML UDC 40 MEQ PO (12:30)
[2023-04-03] MEDS: Potassium Chloride 10mEq/100mL 10 MEQ/100 ML IV.SOLN. 100 MEQ IV BOLUS (12:30)
[2023-04-03 13:00] VITALS: PULSE 82; RESP 22; O2SAT 100
== END 2023-04-03 13:38 | disposition home or self-care (01) ==
PROVIDERS: Emergency Provider Emergency Medicine; PCP Nurse Practitioner; Visit Provider Emergency Medicine
DX: R42 Dizziness and giddiness (principal); E87.6 Hypokalemia; Z87.891 Personal history of nicotine dependence; Z85.3 Personal history of malignant neoplasm of breast; Z90.710 Acquired absence of both cervix and uterus
CPT/HCPCS: 71045; 80048; 83735; 84484; 85025; 85379; 93005; 96365; 99285; J7030; A4216

== ENCOUNTER → 2023-04-09 | Outpatient (CLI) | payer OTHER, SELFPAY ==
[2023-04-09 21:04] LABS: AST(SGOT) 10 U/L (15-37); Alanine Aminotransfer ALT/SGPT 38 U/L (13-56); Albumin, Serum 3.6 g/dL (3.2-5.0); Alkaline Phosphatase 76 U/L (45-117); Anion Gap 8 (5-15); BUN 24 mg/dL (7-18); BUN/Creat Ratio 36.5 RATIO (10-20); Calcium,Total 8.7 mg/dL (8.5-10.1); Chloride 104 mmol/L (98-107); Creatinine, Serum 0.66 mg/dL (0.55-1.02); EST Glomerular Filtration Rate 98 mL/min (>60); Est Glom Filt Rate - Afr Amer 118 mL/min (>60); Globulin 3.6 g/dL (2.2-4.2); Glucose 109 mg/dL (74-106); Potassium 4.1 mmol/L (3.5-5.1); Protein, Total 7.2 g/dL (6.4-8.2); Sodium Level 137 mmol/L (136-145)
== END | disposition home or self-care (01) ==
PROVIDERS: PCP Nurse Practitioner; Referring Provider Nurse Practitioner; Visit Provider Nurse Practitioner
DX: E87.6 Hypokalemia (principal)
CPT/HCPCS: 80053

== ENCOUNTER → 2024-03-09 | Outpatient (CLI) | payer OTHER, SELFPAY ==
[2024-03-09 22:12] LABS: Absolute Lymphocyte Count 2.51 X10^3/uL (0.83-4.51); Basophil# 0.08 X10^3/uL; Basophil% 0.9 % (0-1); Eosinophil# 0.34 X10^3/uL; Hematocrit 41.8 % (37-47); Hemoglobin 14.3 g/dL (12.0-15.0); Lymphocyte # 2.51 X10^3/ul (0.83-4.51); Lymphocyte % 29.2 % (19-41); Mean Corp Hgb Conc 34.2 g/dL (32-36); Mean Corpuscular Hgb 30.2 pg (27.0-32.0); Mean Corpuscular Volume 88.2 fL (81-99); Mean Platelet Vol. 10.4 fl (6.2-12.0); Monocyte# 0.65 X10^3/uL; Monocyte% 7.6 % (0-10); NRBC Flagged by Analyzer 0 % (0-5); Neutrophil % 58.1 % (47-70); Platelet Count 229 K/mm3 (150-450); RBC Distribution Width CV 12.2 % (11.6-14.6); RBC Distribution Width SD 39.3 fl (35.1-43.9); Red Blood Count 4.74 M/mm3 (4.2-5.4); White Blood Count 8.6 K/mm3 (4.4-11.0)
[2024-03-09 22:28] LABS: ALB/GLOB Ratio 1.1 RATIO (0.9-2.4); AST(SGOT) 12 U/L (15-37); Alanine Aminotransfer ALT/SGPT 23 U/L (13-56); Albumin, Serum 3.9 g/dL (3.2-5.0); Alkaline Phosphatase 65 U/L (45-117); Anion Gap 7 (5-15); BUN 17 mg/dL (7-18); BUN/Creat Ratio 29.7 RATIO (10-20); Calcium,Total 9.3 mg/dL (8.5-10.1); Chloride 106 mmol/L (98-107); Cholesterol 213 mg/dL (200); Creatinine, Serum 0.57 mg/dL (0.55-1.02); EST Glomerular Filtration Rate 114 mL/min (>60); Est Glom Filt Rate - Afr Amer 138 mL/min (>60); Globulin 3.6 g/dL (2.2-4.2); Glucose 94 mg/dL (74-106); High Density Lipoprotein 46 mg/dL; Potassium 3.6 mmol/L (3.5-5.1); Protein, Total 7.5 g/dL (6.4-8.2); Sodium Level 136 mmol/L (136-145); Triglycerides 257 mg/dL; Troponin-I HS 4 pg/mL (3.0-54.0); Very Low Density Lipoprotein 51 mg/dL (5-40)
== END | disposition home or self-care (01) ==
PROVIDERS: PCP Nurse Practitioner; Referring Provider Nurse Practitioner; Visit Provider Nurse Practitioner
DX: I10 Essential (primary) hypertension (principal); K21.9 Gastro-esophageal reflux disease without esophagitis; R07.9 Chest pain, unspecified; I25.119 Atherosclerotic heart disease of native coronary artery with unspecified angina pectoris
CPT/HCPCS: 80053; 80061; 84443; 84484; 85025; 86141

== ENCOUNTER 2024-07-25 10:21 | Emergency (ER) | payer OTHER, SELFPAY ==
[2024-07-25 10:22] VITALS: BP 156/109; PULSE 150; RESP 20; TEMP 37.3; O2SAT 100; BMI 26.3
[2024-07-25 10:24] VITALS: BP 156/109; PULSE 150; RESP 20; TEMP 37.3; O2SAT 100
[2024-07-25 11:04] VITALS: BP 130/97; PULSE 117; RESP 17; O2SAT 100
[2024-07-25 11:21] LABS: Absolute Lymphocyte Count 1.54 X10^3/uL (0.83-4.51); Absolute Neutrophil Count 1.8 X10^3/uL (2.0-7.7); Basophil# 0.02 X10^3/uL; Basophil% 0.5 % (0-1); Eosinophil# 0.05 X10^3/uL; Eosinophils% 1.3 % (0-5); Hematocrit 42.1 % (37-47); Hemoglobin 14.6 g/dL (12.0-15.0); Lymphocyte # 1.54 X10^3/ul (0.83-4.51); Mean Corp Hgb Conc 34.7 g/dL (32-36); Mean Corpuscular Hgb 30.2 pg (27.0-32.0); Mean Platelet Vol. 9.8 fl (6.2-12.0); Monocyte# 0.37 X10^3/uL; Monocyte% 9.8 % (0-10); NRBC Flagged by Analyzer 0 % (0-5); Neutrophil # 1.75 X10^3/uL (2.7-7.7); Neutrophil % 46.6 % (47-70); Platelet Count 147 K/mm3 (150-450); RBC Distribution Width SD 41.1 fl (35.1-43.9); Red Blood Count 4.84 M/mm3 (4.2-5.4); White Blood Count 3.8 K/mm3 (4.4-11.0)
[2024-07-25 11:24] VITALS: BP 113/85; PULSE 88; RESP 12; TEMP 37.2; O2SAT 100
[2024-07-25 11:25] LABS: International Normalized Ratio 0.9; Prothrombin Time (Protime)PT. 11.9 SECONDS (11.7-14.9)
[2024-07-25 11:30] LABS: Partial Thromboplast Time 23.5 Seconds (24.1-36.2)
[2024-07-25 11:32] LABS: AST(SGOT) 21 U/L (15-37); Alanine Aminotransfer ALT/SGPT 37 U/L (13-56); Albumin, Serum 3.9 g/dL (3.2-5.0); Alkaline Phosphatase 78 U/L (45-117); Anion Gap 10 (5-15); BUN 10 mg/dL (7-18); BUN/Creat Ratio 10.6 RATIO (10-20); Calcium,Total 9.6 mg/dL (8.5-10.1); Chloride 104 mmol/L (98-107); Creatinine, Serum 0.94 mg/dL (0.55-1.02); EST Glomerular Filtration Rate 64 mL/min (>60); Est Glom Filt Rate - Afr Amer 78 mL/min (>60); Estimated Creatinine Clearance 63.22 ml/min; Globulin 3.9 g/dL (2.2-4.2); Glucose 124 mg/dL (74-106); Potassium 3.5 mmol/L (3.5-5.1); Protein, Total 7.8 g/dL (6.4-8.2); Sodium Level 135 mmol/L (136-145); Troponin-I HS < 3 pg/mL (3.0-54.0)
[2024-07-25] MEDS: 0.9% Normal Saline (1000mL) 1,000 ML 999 ML IV ×3 (11:36→14:19)
[2024-07-25 11:43] LABS: Bacteria 0 SEEN /hpf (None Seen); Mucous, Urine 0 SEEN /hpf (<or=2+); White Blood Cells 0 SEEN /hpf (0-5)
--- NOTE | 2024-07-25 11:43 | ED.RN ---
Critical Lactic Acid of 2.7. Dr. Sadler notified
[2024-07-25 11:44] LABS: Lactic Acid 2.7 mmol/L (0.4-1.9)
[2024-07-25 11:47] LABS: Color, Urine Straw (Yellow); Glucose, Dipstick Normal (Normal); Ketone-Dipstick 15 mg/dl (Negative); Leukocyte Esterase-Dipstick Negative /ul (Negative); Nitrite-Dipstick Negative (Negative); Occult Blood-Urine Negative /ul (Negative); Protein-Dipstick Negative (Negative); Urine Bilirubin Dipstick Negative (Negative); Urine Clarity Clear (Clear); Urine Urobilinogen Normal (Normal)
--- NOTE | 2024-07-25 11:50 | RAD_ITS ---
PROCEDURE: CHEST PA AND LATERAL REASON FOR EXAM: Two-month history of sinus drainage. TECHNIQUE: Frontal and lateral views of the chest. COMPARISON: Comparison is made with prior study dated April 03, 2023. FINDINGS: EKG electrodes are seen. The heart size is normal. The mediastinal contour is unremarkable. Hyperinflation. There is blunting of the costophrenic angles bilaterally posteriorly. The bones are unremarkable. RAD/Chest PA and Lateral IMPRESSION: Hyperinflation. No infiltrate is seen. Blunting of the costophrenic angles posteriorly. This may be chronic. Reading Location: [facility]
[2024-07-25 11:52] LABS: Red Blood Cells-Urine 0 SEEN /hpf (0-5); Squamous Epithelial Cells - UA 0-5 SEEN /hpf (5-10)
--- NOTE | 2024-07-25 12:25 | CT_ITS ---
PROCEDURE: CTA CHEST W/WO CONTRAST REASON FOR EXAM: Generalized illness. TECHNIQUE: CTA imaging of the chest with intravenous contrast. 3D reconstructions. CONTRAST: 91 mL of Isovue-300 was injected intravenously. COMPARISON: None. FINDINGS: Hardware: None. Lymph nodes: No mediastinal hilar or axillary lymphadenopathy. Heart: Normal heart size. No pericardial effusion. RV/LV Diameter Ratio: N/A Thoracic Aorta: No thoracic aortic aneurysm or dissection. Pulmonary Vessels: No evidence of acute pulmonary emboli through the major subsegmental branches. Most Proximal Level of Embolus (if embolus present): N/A Lungs and Airways: The lungs are normally expanded and clear. Pleura: No pleural effusion. No pneumothorax. Upper Abdomen: Visualized portions of the upper abdominal viscera are unremarkable. Bones: Degenerative changes of the thoracic spine. CT/CTA Chest W/WO Contrast IMPRESSION: NORMAL CHEST CTA. NO EVIDENCE OF ACUTE PULMONARY EMBOLISM. One or more dose reduction techniques were used (e.g., Automated exposure contr ol, adjustment of the mA and/or kV according to patient size, use of iterative reconstruction technique). Reading Location: [place] [id number]
--- NOTE | 2024-07-25 12:25 | CT_ITS ---
PROCEDURE: ABDOMEN/PELVIS W IV CONT ONLY REASON FOR EXAM: Two-month history of generalized illness. TECHNIQUE: Abdomen and pelvis CT with intravenous contrast. No oral contrast. IV CONTRAST: 100 cc of Isovue-300. COMPARISON: None. FINDINGS: Lung bases: Clear Liver: Diffuse fatty infiltration. Gallbladder: Surgically absent. Spleen: Borderline splenomegaly. Pancreas: Unremarkable. Adrenals: Unremarkable. Kidneys: Unremarkable. Bladder: Unremarkable. Reproductive Organs: Prior hysterectomy. Adnexal regions are unremarkable. Bowel: Colonic diverticulosis without diverticulitis. Appendix: Normal. Lymph nodes: No suspicious lymph node enlargement. Vasculature: There is a 12.7 mm calcified splenic artery aneurysm. Peritoneum / Retroperitoneum: No ascites. No free air. Small umbilical hernia containing fat. Bones: Degenerative changes of the spine. CT/Abdomen/Pelvis W IV Cont ONLY IMPRESSION: Fatty infiltration of the liver. Status post cholecystectomy. 12.7 mm calcified splenic artery aneurysm. Borderline splenomegaly. Small umbilical hernia containing fat. One or more dose reduction techniques were used (e.g., Automated exposure contr ol, adjustment of the mA and/or kV according to patient size, use of iterative reconstruction technique). Reading Location: [place] [id number]
[2024-07-25 13:00] VITALS: BP 116/75; PULSE 81; RESP 10; O2SAT 100
--- NOTE | 2024-07-25 13:47 | EX.ED.DYSGE1 ---
HPI History of Present Illness Chief Complaint: General Illness Narrative Narrative: Patient is a 58-year-old female with past medical history hypertension, multinodular goiter, C. difficile who presents to the emergency department with a chief complaint of diarrhea and not feeling well overall as well as lightheadedness. Patient states that ever since she started Bactrim she developed diarrhea and states that it has been not getting better. States that some days are worse than others. Patient notes that she was on other antibiotics as well earlier in the month for sinus drainage. Patient denies any other sick contacts. PFSH PFS Medical History C. difficile diarrhea Hypertension Trimalleolar fracture of ankle, open Osteopenia Pemphigus Cholelithiasis with cholecystitis Cholelithiasis multiple complex cysts in breast Left breast mass benign left follicular thyroid nodule (~02/09/18) Multinodular goiter Neck pain Fatigue Fibroids Home Medications ?Medication ?Instructions ?Recorded ?Last Taken ?Type famotidine 40 mg tablet 40 mg PO QDAY #90 tabs 03/09/24 Unknown Rx lisinopril 10 mg tablet 10 mg PO DAILY #90 tabs 03/09/24 Unknown Rx fluconazole 100 mg tablet 100 mg PO QDAY #30 tabs 06/12/24 Unknown Rx amoxicillin 875 mg-potassium 1 tab PO BID #20 tabs 06/26/24 Unknown Rx clavulanate 125 mg tablet ondansetron 4 mg disintegrating 4 mg PO Q6H PRN nausea and 07/25/24 Unknown Rx tablet vomiting #20 tabs Allergy/AdvReac Type Severity Reaction Status Date / Time No Known Allergies Allergy Verified 07/25/24 10:22 Family History Other CAD (coronary artery disease) CVA (cerebral vascular accident) Diabetes Heart disease Hypertension Surgical History Status post ORIF of fracture of ankle Trimalleolar fracture of ankle, closed History of arthroscopy of shoulder S/P lumpectomy, left breast Previous section H/O hysterectomy for benign disease Social History Smoking Status: Former smoker how long ago did patient quit smoking: June 2017 second hand exposure: No alcohol intake: current details: once a month wine or mixed drink substance use type: does not use well-balanced diet: daily or most days what type of physical activity do you participate in: walking frequency: 1-2 times per week ROS ROS ED ROS Narrative Constitutional: Complains of generalized not feeling well denies any fevers or chills complains of lightheadedness denies dizziness Eyes: Denies change in vision double vision blurry vision Cardiovascular: Denies chest pain or palpitations Respiratory: Denies coughing shortness of breath Abdomen: Complains of a generalized abdominal discomfort and diarrhea denies nausea vomiting Neurological: Denies numbness, weakness, tingling Musculoskeletal: Denies back pain Skin: Denies rashes or lesions EXAM Physical Exam Narrative Exam Narrative: General: Patient lying in bed rest comfortably did not appear to be in acute distress Head: Atraumatic, normocephalic Eyes: PERRL bilaterally, EOMI bilaterally, no conjunctival injection noted Neck: Soft, supple, trachea midline Cardiovascular: Patient is tachycardic with a regular rhythm no murmurs gallops rubs noted Respiratory: Clear to auscultation bilaterally no rales rhonchi or wheezes noted Abdomen: Soft, nondistended, diffuse mild tenderness to palpation no rebound or guarding on exam, bowel sounds present x 4 Extremities: +5/5 strength noted in the bilateral upper and lower extremities, radial pulses +2/4 in the bilateral extremities, no pedal edema on exam Neurological: Patient follow commands knew that she was at [facility] year is 2024 Skin: Warm, dry, intact no rashes or lesions noted Const Vital Signs: 07/25/24 10:22 07/25/24 10:24 07/25/24 10:35 Temperature 99.1 F 99.1 F Temperature Source Oral Oral Pulse Rate 150 H 150 H Respiratory Rate 20 H 20 H Respiratory Effort Respiratory Pattern Blood Pressure 156/109 H 156/109 H Blood Pressure Mean 124 124 Pulse Ox 100 100 Oxygen Delivery Method Room Air Room Air Room Air 07/25/24 11:03 07/25/24 11:04 07/25/24 11:24 Temperature 99.0 F Temperature Source Oral Pulse Rate 117 H 88 Respiratory Rate 17 12 Respiratory Effort Normal Non-Labored Respiratory Pattern Normal Blood Pressure 130/97 H 113/85 H Blood Pressure Mean 108 94 Pulse Ox 100 100 Oxygen Delivery Method Room Air Room Air 07/25/24 13:00 Temperature Temperature Source Pulse Rate 81 Respiratory Rate 10 L Respiratory Effort Respiratory Pattern Blood Pressure 116/75 Blood Pressure Mean 88 Pulse Ox 100 Oxygen Delivery Method Room Air MDM MDM MDM Narrative Medical decision making narrative: Patient is a 58-year-old female who presented to the emerged department chief complaint of diarrhea, generalized not feeling well, lightheadedness. On the differential diagnose includes but not limited to influenza, viral gastroenteritis secondary to other viral etiology, ACS, pneumonia, PE, AAA. Once workup is obtained reviewed she will be reevaluated. Patient will be given 30 cc/kg bolus of IV fluids. Patient CBC was reviewed showed no evidence leukocytosis white blood count normal 3.8, hemoglobin 14.6, plate count was noted be 147. Patient's INR was noted be 0.9, PT of 11.9, sodium normal 135, potassium normal 3.5, creatinine normal at 0.94. Patient's anion gap normal at 10, lactic acidosis of 2.7 noted, AST and ALT are 21 37 respectively. Patient's troponin was less than 3, EKG was reviewed by myself showed sinus tachycardia at the rate of 131 bpm. Patient's urinalysis showed no evidence of infection. Patient CTA of her chest showed no acute pulmonary embolism or no other acute findings. Patient CT abdomen pelvis with IV contrast reviewed as well and showed fatty infiltration of the liver status post cholecystectomy. 2.7 mm calcified splenic artery aneurysm borderline splenomegaly. Small umbilical hernia containing fat. Patient chest x-ray reviewed by myself and by radiology showed blunting of the costophrenic angles posteriorly may be chronic. Hyperinflation no infiltrate. Patient tested negative for COVID flu RSV. Patient's EKG reviewed and independently turbid of myself showed sinus tachycardia the rate of 131 bpm. Patient after IV fluids feels much improved her heart rate normalized and she ambulated several times here in the emergency department without any lightheadedness and feels much better. Patient's lactic acid normalized to 1.3. Patient would like to go home at this point time she is vies follow-up with her primary care physician in the outpatient setting. She is vies to discontinue the Bactrim as she states this is not helping her sinus symptoms and this has been going on for several months and she has been on multiple antibiotics. She is advised to return with worsening symptoms or concerns. She is agreeable this plan all question concerns answered she is discharged home in stable condition. Patient was given prescription for Zofran. Lab Data Labs: Laboratory Results - last 24 hr 07/25/24 07/25/24 07/25/24 10:50 11:40 15:00 WBC 3.8 L RBC 4.84 Hgb 14.6 Hct 42.1 MCV 87.0 MCH 30.2 MCHC 34.7 RDW Std Deviation 41.1 RDW Coeff of Ness 13.0 Plt Count 147 L MPV 9.8 Immature Gran % (Auto) 0.800 Neut % (Auto) 46.6 L Lymph % (Auto) 41.0 [place] % (Auto) 9.8 Eos % (Auto) 1.3 Baso % (Auto) 0.5 Absolute Neuts (auto) 1.8 L Absolute Lymphs (auto) 1.54 Nucleated RBC % 0 PT 11.9 INR 0.9 APTT 23.5 L Sodium 135 L Potassium 3.5 Chloride 104 Carbon Dioxide 21.0 Anion Gap 10 BUN 10 Creatinine 0.94 Estim Creat Clear Calc 63.22 Est GFR (MDRD) Af Amer 78 Est GFR (MDRD) Non-Af 64 BUN/Creatinine Ratio 10.6 Glucose 124 H Lactic Acid 2.7 H* 1.3 Calcium 9.6 Total Bilirubin 0.60 AST 21 ALT 37 Alkaline Phosphatase 78 Troponin I High Sens < 3 L Total Protein 7.8 Albumin 3.9 Globulin 3.9 Albumin/Globulin Ratio 1.0 Urine Color Straw Urine Clarity Clear Urine pH 8.0 Ur Specific [place] 1.010 Urine Protein Negative Urine Glucose (UA) Normal Urine Ketones 15 H Urine Occult Blood Negative Urine Nitrite Negative Urine Bilirubin Negative Urine Urobilinogen Normal Ur Leukocyte Esterase Negative Urine RBC 0 SEEN Urine WBC 0 SEEN Ur Squamous Epith Cells 0-5 SEEN Urine Bacteria 0 SEEN Urine Mucus 0 SEEN Radiography Diagnostic Testing: Clinical Impression(s) from Imaging Studies Chest X-Ray 07/25/24 11:50 IMPRESSION: Hyperinflation. No infiltrate is seen. Blunting of the costophrenic angles posteriorly. This may be chronic. Reading Location: [facility]1 Abdomen/Pelvis CT 07/25/24 12:25 IMPRESSION: Fatty infiltration of the liver. Status post cholecystectomy. 12.7 mm calcified splenic artery aneurysm. Borderline splenomegaly. Small umbilical hernia containing fat. One or more dose reduction techniques were used (e.g., Automated exposure control, adjustment of the mA and/or kV according to patient size, use of iterative reconstruction technique). Reading Location: [facility] Chest CTA 07/25/24 12:25 IMPRESSION: NORMAL CHEST CTA. NO EVIDENCE OF ACUTE PULMONARY EMBOLISM. One or more dose reduction techniques were used (e.g., Automated exposure control, adjustment of the mA and/or kV according to patient size, use of iterative reconstruction technique). Reading Location: [facility]- Discharge Plan Triage Chief Complaint: General Illness ED Provider: Tanner Sadler Dx/Rx/DC Orders Clinical Impression: Dehydration, Diarrhea, Light-headedness Prescriptions: New ondansetron 4 mg tablet,disintegrating 4 mg PO Q6H PRN (Reason: nausea and vomiting) Qty: 20 0RF No Action famotidine 40 mg tablet 40 mg PO QDAY Qty: 90 3RF lisinopril 10 mg tablet 10 mg PO DAILY Qty: 90 3RF fluconazole 100 mg tablet 100 mg PO QDAY Qty: 30 0RF amoxicillin-pot clavulanate 875-125 mg tablet 1 tab PO BID Qty: 20 0RF Primary Care Provider: Sienna Gipson NP Referrals: Sienna Gipson NP, [employer] [Primary Care Provider] - Activity Restrictions/Additional Instructions: Continue supportive care Ensure adequate hydration with fluids. Use Zofran as prescribed as needed for nausea. Return with worsening symptoms and concerns. Follow-up your primary care physician outpatient setting. Print Language: Yoruba Disposition Disposition: Home, Self Care
[2024-07-25 15:04] LABS: Reflex Lactate? Y
[2024-07-25 15:40] LABS: Lactic Acid 1.3 mmol/L (0.4-1.9)
== END 2024-07-25 15:53 | disposition home or self-care (01) ==
PROVIDERS: Emergency Provider Emergency Medicine; PCP Nurse Practitioner; Visit Provider Emergency Medicine
DX: E86.0 Dehydration (principal); R19.7 Diarrhea, unspecified; E87.20 Acidosis, unspecified; Z11.52 Encounter for screening for COVID-19; K76.0 Fatty (change of) liver, not elsewhere classified; I10 Essential (primary) hypertension; K42.9 Umbilical hernia without obstruction or gangrene; I72.8 Aneurysm of other specified arteries; Z79.899 Other long term (current) drug therapy; Z86.19 Personal history of other infectious and parasitic diseases; Z87.891 Personal history of nicotine dependence
CPT/HCPCS: 71046; 71275; 74177; 80053; 81001; 83605; 84484; 85025; 85610; 85730; 87040; 87086; 87631; 93005; 96360; 96361; 99284; Q9967; A4216

== ENCOUNTER → 2025-02-13 | Outpatient (CLI) | payer OTHER, SELFPAY ==
[2025-02-13 21:53] LABS: Hematocrit 41.6 % (37-47); Hemoglobin 14.5 g/dL (12.0-15.0); Immature Granulocytes Count 0.020 X10^3/uL (0.0-0.0); Mean Corp Hgb Conc 34.9 g/dL (32-36); Mean Corpuscular Volume 86.1 fL (81-99); Mean Platelet Vol. 10.6 fl (6.2-12.0); NRBC Flagged by Analyzer 0 % (0-5); Platelet Count 242 K/mm3 (150-450); RBC Distribution Width CV 12.2 % (11.6-14.6); RBC Distribution Width SD 38.6 fl (35.1-43.9); Red Blood Count 4.83 M/mm3 (4.2-5.4); White Blood Count 8.8 K/mm3 (4.4-11.0)
[2025-02-13 22:23] LABS: AST(SGOT) 19 U/L (<=31); Alanine Aminotransfer ALT/SGPT 22 U/L (<=34); Albumin, Serum 4.5 g/dL (3.4-4.8); Alkaline Phosphatase 81 U/L (35-104); Anion Gap 13 (5-15); BUN 25 mg/dL (4-19); BUN/Creat Ratio 36.8 RATIO (10-20); Calcium,Total 9.9 mg/dL (7.6-11.0); Carbon Dioxide 23.4 mmol/L (21.0-32.0); Chloride 100 mmol/L (98-108); Cholesterol 230 mg/dL (<=200); Globulin 3.0 g/dL (2.2-4.2); Glucose 93 mg/dL (70-99); Low Density Lipoprotein Calc. 141 mg/dL; Potassium 4.4 mmol/L (3.3-5.1); Triglycerides 238 mg/dL; Very Low Density Lipoprotein 48 mg/dL (5-40); cholesterol:hdl ratio screen 5.49
== END | disposition home or self-care (01) ==
PROVIDERS: PCP Nurse Practitioner; Visit Provider Nurse Practitioner
DX: Z00.00 Encounter for general adult medical examination without abnormal findings (principal)
CPT/HCPCS: 80053; 80061; 85025